=== PATIENT | male | born 1965 | race Two or more races ===

== ENCOUNTER 2020-01-07 11:25 | Outpatient (CLI) | payer OTHER | END 2020-01-07 11:36 | disposition home or self-care (01) | LOC: RAD 11:25 | PROVIDERS: ATTEND Orthopaedic Surgery | DX: M25.571 Pain in right ankle and joints of right foot (principal) ==

== ENCOUNTER 2024-04-23 09:28 | Day surgery (SDC) | payer OTHER ==
[2024-04-20 09:57] VITALS: BP 154/90
[2024-04-20 11:19] LABS: HEMATOCRIT 44.1 % (39.0-48.0); HEMOGLOBIN 14.9 g/dL (13-16.00); MEAN CELL VOLUME 80.9 fL (80.0-100.00); MEAN CORPUSCULAR HEMOGLOBIN 27.3 pg (27.00-32.0); MEAN CORPUSCULAR HGB CONC 33.8 g/dl (32.0-36.0); PLATELET COUNT 191 K/uL (150-450); RED BLOOD COUNT 5.46 M/uL (4.00-6.00); RED CELL DISTRIBUTION WIDTH 13.4 % (11.5-14.5)
[2024-04-20 11:40] LABS: INR 1.05; PARTIAL THROMBOPLASTIN TIME 30.8 SECONDS (22.0-34.0); PROTHROMBIN TIME 11.4 SECONDS (9.0-11.5)
[2024-04-20 11:41] LABS: PH,URINE 7.5 (5.0-8.0); URINE APPEARANCE Clear; URINE BILIRRUBIN Negative (NEGATIVE); URINE COLOR Yellow; URINE GLUCOSE Negative (NEGATIVE); URINE KETONE Negative (NEGATIVE); URINE LEUKOCYTE Trace; URINE NITRATE Negative; URINE PROTEIN Negative (NEGATIVE); URINE UROBILINOGEN 0.2 E.U./dl
[2024-04-20 11:45] LABS: URINE BACTERIA 46.4 uL (0.0-1933); URINE EPITHELIAL CELLS 2.6 uL (0.0-38.8); URINE RBC 32.4 uL (0.0-20.8); URINE WBC 59.8 uL (0.0-23.2)
[2024-04-20 12:00] LABS: URINE BLOOD TRACES; URINE CAST 0.29 uL (0.0-1.40)
[2024-04-20 12:18] LABS: CALCIUM 9.4 mg/dL (8.5-10.1); CREATININE SERUM 0.79 mg/dL (0.70-1.30); GFR 100.05; POTASSIUM 4.18 mEq/L (3.5-5.1)
[~2024-04-23] VITALS: Ht 175.3 cm; Wt 72.6 kg
[~2024-04-23 09:28] MED LIST: TAMS0.4C; VASOTEC10 MG PO
[2024-04-23] MEDS ORDERED: GENTAMICIN SULFATE 40 MG/ML VIAL ONE (10:11)
[2024-04-23] MEDS ORDERED: OxyCODONE HCL/APAP UD (PERCOCET) PO PRN (12:45)
[2024-04-23] MEDS ORDERED: MORPHINE SULFATE 2 MG/ML CARTRIDGE IV ONE (13:25)
== END 2024-04-23 15:20 | disposition home or self-care (01) ==
LOC: CIR.AMB 09:28
PROVIDERS: ATTEND Urology
DX: C67.9 Malignant neoplasm of bladder, unspecified (principal); I10 Essential (primary) hypertension